=== PATIENT | male | born 1995 | race Asian ===

== ENCOUNTER 2021-07-08 16:56 | Emergency (ER) | payer BC ==
[~2021-07-08] VITALS: Ht 180.3 cm; Wt 97.5 kg
[2021-07-08 17:00] VITALS: TEMP 97.8
[2021-07-08 17:21] VITALS: BP 140/72
== END 2021-07-08 17:22 | disposition home or self-care (01) ==
LOC: ED 16:56
DX: T59.891A Toxic effect of other specified gases, fumes and vapors, accidental (unintentional), initial encounter (principal); X58.XXXA Exposure to other specified factors, initial encounter; Y92.89 Other specified places as the place of occurrence of the external cause
CPT/HCPCS: 99281

== ENCOUNTER 2022-10-16 15:36 | Emergency (ER) | payer OTHER | END 2022-10-16 15:49 | disposition home or self-care (01) | LOC: ED 15:36 | DX: Z53.21 Procedure and treatment not carried out due to patient leaving prior to being seen by health care provider (principal) | CPT/HCPCS: 99281 ==